=== PATIENT | female | born 1970 | race Caucasian/White ===

== ENCOUNTER 2020-04-12 21:50 | Outpatient (REF) | payer BC, SELFPAY ==
[2020-04-12 19:44] LABS: Glucose 108 mg/dL (74-106)
[2020-04-16 15:44] LABS: IgA 54 mg/dL (85-499); Interpretation (See Note); Tissue Transglutaminase IgA <1.2 U/mL (<4.0)
== END 2020-04-12 22:10 ==
LOC: NCHCN 21:50
PROVIDERS: PCP Family Medicine; Visit Provider Family Medicine
DX: K21.9 Gastro-esophageal reflux disease without esophagitis (principal); Z83.79 Family history of other diseases of the digestive system
CPT/HCPCS: 82784; 82947; 83516

== ENCOUNTER 2020-05-14 09:44 | Outpatient (REF) | payer BC, SELFPAY ==
[2020-05-17 14:42] LABS: Tissue Transglutaminase Ab IgA <1.2 U/mL; Tissue Transglutaminase Ab IgG 4.1 U/mL
[2020-05-17 21:39] LABS: Gliadin (Deamidated) Ab, IgG <10.0 U
[2020-05-17 21:51] LABS: Gliadin (Deamidated) Ab, IgA <10.0 U
== END 2020-05-14 10:04 ==
LOC: NCHCN 09:44
PROVIDERS: PCP Family Medicine; Visit Provider Family Medicine
DX: Z83.79 Family history of other diseases of the digestive system (principal)
CPT/HCPCS: 83516

== ENCOUNTER 2021-11-12 18:29 | Outpatient (REF) | payer BC, SELFPAY ==
[2021-11-12 13:56] LABS: ALT 41 U/L (14-59); AST 21 U/L (15-37); Albumin 3.9 g/dL (3.4-5.0); Alkaline Phosphatase 49 U/L (46-116); Anion Gap 9.1 mmol/L (3-11); BUN 13 mg/dL (7-18); Bilirubin, Total 0.8 mg/dL (0.2-1.0); CO2 26.9 mmol/L (21.0-32.0); CREATININE 0.8 mg/dL (0.55-1.02); Calcium 8.7 mg/dL (8.5-10.1); Calculated LDL 102 mg/dL (<100); Chloride 107 mmol/L (98-107); Cholesterol 180 mg/dL (<200); Glucose 123 mg/dL (74-106); HDL Cholesterol 37 mg/dL (40-60); Hemoglobin A1C 6.3 % (<5.7); Sodium 143 mmol/L (136-145); TSH (W/Ref FT4) 0.69 uIU/mL (0.36-3.74); Total Protein 6.7 g/dL (6.4-8.2); Triglyceride 209 mg/dL (<150)
== END 2021-11-12 18:30 | disposition home or self-care (01) ==
LOC: NCHCN 18:29
PROVIDERS: PCP Family Medicine; Visit Provider Family Medicine
DX: E66.3 Overweight (principal); Z78.9 Other specified health status
CPT/HCPCS: 80053; 80061; 83036; 84443

== ENCOUNTER 2022-05-05 18:46 | Outpatient (REF) | payer BC, SELFPAY ==
[2022-05-05 16:44] LABS: Anion Gap 5.4 mmol/L (3-11); BUN 13 mg/dL (7-18); CO2 30.6 mmol/L (21.0-32.0); CREATININE 0.9 mg/dL (0.55-1.02); Calcium 9.4 mg/dL (8.5-10.1); Chloride 105 mmol/L (98-107); Estimated GFR 76.44 (mL/min/1.73m2); Glucose 101 mg/dL (74-106); Potassium 3.8 mmol/L (3.5-5.1); Sodium 141 mmol/L (136-145)
[2022-05-05 16:46] LABS: Hemoglobin A1C 6.2 % (<5.7)
== END 2022-05-05 18:47 | disposition home or self-care (01) ==
LOC: NCHCN 18:46
PROVIDERS: PCP Family Medicine; Visit Provider Family Medicine
DX: R03.0 Elevated blood-pressure reading, without diagnosis of hypertension (principal); E66.3 Overweight; Z78.9 Other specified health status
CPT/HCPCS: 80048; 83036

== ENCOUNTER 2025-03-14 14:58 | Outpatient (REF) | payer BC, SELFPAY ==
[2025-03-14 20:59] LABS: Anion Gap 8.5 mmol/L (3-11); BUN 12 mg/dL (7-18); CO2 28.5 mmol/L (21.0-32.0); Calcium 9.2 mg/dL (8.5-10.1); Chloride 105 mmol/L (98-107); Estimated GFR 101.44 (mL/min/1.73m2); Glucose 106 mg/dL (74-106); Potassium 4.0 mmol/L (3.5-5.1); Sodium 142 mmol/L (136-145); TSH 0.53 uIU/mL (0.36-3.74)
[2025-03-14 21:55] LABS: Hemoglobin A1C 6.2 % (<5.7)
== END 2025-03-14 14:59 | disposition home or self-care (01) ==
LOC: NCHCN 14:58
PROVIDERS: PCP Family Medicine; Visit Provider Family Medicine
DX: R73.03 Prediabetes (principal); I10 Essential (primary) hypertension; Z13.29 Encounter for screening for other suspected endocrine disorder
CPT/HCPCS: 80048; 83036; 84443